=== PATIENT | female | born 2000 | race Caucasian/White ===

== ENCOUNTER 2020-02-28 10:01 | Outpatient (REF) | payer OTHER, SELFPAY | END 2020-02-28 10:02 | disposition home or self-care (01) | LOC: HO.LAB 10:01 | PROVIDERS: Visit Provider Internal Medicine | DX: Z20.828 Contact with and (suspected) exposure to other viral communicable diseases (principal) | CPT/HCPCS: 87635 ==

== ENCOUNTER 2020-11-24 18:48 | Emergency (ER) | payer OTHER, SELFPAY ==
[2020-11-24 19:12] VITALS: BP 132/55; PULSE 92; RESP 18; TEMP 36.6; O2SAT 98; BMI 40.2
--- NOTE | 2020-11-24 20:32 | ED.HA ---
HPI - Headache General Chief Complaint: Headache Stated Complaint: headaches, light headedness Time Seen by Provider: 11/24/20 20:49 Source: patient and family Mode of arrival: ambulatory Limitations: no limitations History of Present Illness HPI Narrative: 20-year-old female with past medical history of obesity presents with chief complain of headache. States that she has a headache feels like pressure cross the front of her head, and that she has had headaches in the past and resolved asthma. She has not take any medications to help alleviate this pain. MD elicited complaint: headache Onset (ago): day(s) Onset description: gradually Location: retro-orbital Severity: moderate Pain scale (0-10): 6 Quality & Timing: aching and pressure Relieving factors: nothing Treatments prior to arrival: none Related Data Allergies Allergy/AdvReac Type Severity Reaction Status Date / Time No Known Allergies Allergy Unverified 01/27/20 16:54 Review of Systems Review of Systems: Constitutional: No Weight loss, No Fever, No Chills, No Night Sweats, No Fatigue, No Malaise ENT/Mouth: No Hearing loss, No Ear Pain, No Nasal Congestion, No Sinus Pain, No Hoarseness, No sore throat, No Rhinorrhea, No Swallowing Difficulty Eyes: No Eye Pain, No Swelling, No Redness, No Foreign Body, No Discharge, No Vision Changes Cardiovascular: No Chest Pain, No SOB, No Dyspnea on Exertion, No Orthopnea, No Edema, No Palpitations Respiratory: No Cough, No Sputum, No Wheezing, No Smoke Exposure, No Dyspnea Gastrointestinal: No Nausea, No Vomiting, No Diarrhea, No Constipation, No abdominal Pain, No Hematochezia, No Melena Genitourinary: no irregular bleeding, No Dysuria, No Urinary Frequency, No Hematuria, No Urinary Incontinence, No Urgency, No Flank Pain, No Urinary Flow Changes, No Hesitancy Musculoskeletal: No joint pain, No Myalgias, No Joint Swelling Skin: No Skin Lesions, No rash Neuro: Positive headache, positive syncope, No Weakness, No Numbness, No Paresthesias, No Loss of Consciousness, No Dizziness Psych: No Anxiety/Panic, No Depression, No SI/HI/AH/VH, No Social Issues Heme/Lymph: No Bruising, No Bleeding,No Lymphadenopathy Endocrine: No Polyuria, No Polydipsia, No Temperature Intolerance Yes all other systems are reviewed and are negative PMFSH Past Medical History Attestation statement: The following information was validated with the patient. Source: old records reviewed Medical History Asthma Concussion Headache Social History Social History Advance Directives: No Advance Directives Information Provided: No Patient : No Physical Exam Vital Signs: Vital Signs: Last Vital Signs Temp 98.7 F 11/24/20 22:00 Pulse 85 11/24/20 22:00 Resp 18 11/24/20 22:00 BP 105/58 L 11/24/20 22:00 Pulse Ox 98 11/24/20 22:00 Body Mass Index 40.2 Appearance: Alert. Oriented X3. No acute distress. Head: Normal external exam. Normocephalic. Atraumatic. No Ashraf signs noted. No raccoon eyes noted Eyes: PERRLA. EOMI. Conjunctiva and sclera normal. Eyelids normal. ENT: TM's Normal. Pharynx normal. Uvula midline. Moist mucous membranes. No trismus noted. No drooling noted. No muffled voice noted. Neck: Normal inspection. Neck supple. No adenopathy. Thyroid Normal. No meningeal signs. No neck mass noted. CVS: Normal heart rate and rhythm. Heart sound normal. No murmurs noted. Pulses equal to all extremities. Respiratory: No respiratory distress. Painless inspiration. Breath sounds normal. No wheezes/rales/rhonchi noted. Chest nontender. No accessory muscle usage noted or decreased air movement noted. Abdomen: Soft and nontender. Bowel sounds normal in all 4 quadrants. No distention noted. No organomegaly noted. No visible injury noted. Back: No CVA tenderness. Full range of motion noted. Skin: Skin warm and dry. Normal skin color. Normal skin turgor. No rashes/lesions/lacerations noted. Extremities: No lower extremity edema. Extremities exhibit normal range of motion. Extremities nontender. Neuro: cranial nerves 2-12 intact, no focal neural deficits, strength 5/5 to all extremities, No motor deficit. No sensory deficit. Course Course Course Narrative: 20-year-old female presents with chief complaint of headache. Once initial triage was completed and this [employer] began my initial assessment, patient stated that she had a syncopal episode on Friday, she was standing for prolonged period of time watching her friend get a tattoo, states that she lost consciousness for several seconds. States that she has not eaten very much over the past several days, stated that she is just not that hungry. She does not report any fevers or chills, denies chest pain or pressure, palpitations, shortness of breath, shortness of breath on exertion, abdominal pain, abdominal distention, dysuria, hematuria, edema, and any other concerning symptoms. Based on her symptom allergy will order CBC, Chem 7, urinalysis, test not indicated as she is not sexually active with men, and COVID test. We will give 1 L of fluid. Patient is neurologically intact, cranial nerves 2-12 intact, no focal neural deficits, no nuchal rigidity. Patient's mother is requesting a full neurological workup with a neurologist, I did tell her at this time that is not indicated and that she is neurovascularly intact. Labs are unremarkable, shows mild elevation in white count, mild anemia, urinalysis is negative. Patient is afebrile. She is advised to follow up with her primary care physician for further workup. MDM - Headache Differential Diagnosis Differential diagnosis: Likely migraine, tension headache and headache Medical Records Attestation: I reviewed the patient's medical records. Lab Data Attestation: I reviewed the patient's lab results. Result diagrams: 11/24/20 21:23 11/24/20 22:45 Labs: Lab Results 11/24/20 11/24/20 11/24/20 Range/Units 21:13 21:23 21:23 WBC 12.1 H (4.8-10.8) X10*3/uL RBC 4.36 (4.20-5.50) X10*6/uL Hgb 11.3 L (12.0-16.0) g/dl Hct 36.1 L (37-47) % MCV 82.8 (80-98) fL MCH 25.9 L (27.0-33.0) pg MCHC 31.3 (31.0-35.0) g/dl RDW 14.4 (11.0-16.0) % Plt Count 322 (160-400) X10*3/uL MPV 12.4 H (9.4-12.3) fL Immature Gran % (Auto) 0.2 (0.0-0.4) % Neut % (Auto) 62.0 (45-73) % Lymph % (Auto) 27.7 (20-40) % [place] % (Auto) 8.3 (2-11) % Eos % (Auto) 1.5 (0-4) % Baso % (Auto) 0.3 (0-2) % Lymph # (Auto) 3.3 (1.2-4.9) X10*3/uL [place] # (Auto) 1.0 (0.1-1.2) X10*3/uL Eos # (Auto) 0.2 (0.0-0.4) X10*3/uL Baso # (Auto) 0.0 (0.0-0.2) X10*3/uL Abs Immat Gran (auto) 0.02 (0.00-0.03) X10*3/uL Absolute Neuts (auto) 7.5 (2.0-8.3) X10*3/uL Absolute Nucleated RBC 0.000 (0.0-0.012) X10*3/uL Nucleated RBC % (auto) 0.0 (0.0-0.2) /100WBC Sodium (135-145) mmol/L Potassium (3.3-5.1) mmol/L Chloride (96-108) mmol/L Carbon Dioxide (22-29) mmol/L Anion Gap (12-20) BUN (9-16) mg/dL Creatinine (0.5-1.4) mg/dL Estim Creat Clear Calc Estimated GFR POC Glucose 117 H (60-115) mg/dL Random Glucose (60-115) mg/dL Calcium (8.4-10.2) mg/dL Troponin I High Sens < 3.5 (<3.5-17.0) ng/L Urine Color Urine Appearance Urine pH (5.0-8.0) Ur Specific [place] (1.005-1.025) Urine Protein (NEG-TRACE) MG/DL Urine Glucose (UA) (NEG) MG/DL Urine Ketones (NEG) MG/DL Urine Blood (NEG) Urine Nitrite (NEG) Ur Leukocyte Esterase (NEG) COVID-19 ([facility]) (Negative) COVID-19 Clin Com 11/24/20 11/24/20 11/24/20 Range/Units 21:23 22:11 22:45 WBC (4.8-10.8) X10*3/uL RBC (4.20-5.50) X10*6/uL Hgb (12.0-16.0) g/dl Hct (37-47) % MCV (80-98) fL MCH (27.0-33.0) pg MCHC (31.0-35.0) g/dl RDW (11.0-16.0) % Plt Count (160-400) X10*3/uL MPV (9.4-12.3) fL Immature Gran % (Auto) (0.0-0.4) % Neut % (Auto) (45-73) % Lymph % (Auto) (20-40) % [place] % (Auto) (2-11) % Eos % (Auto) (0-4) % Baso % (Auto) (0-2) % Lymph # (Auto) (1.2-4.9) X10*3/uL [place] # (Auto) (0.1-1.2) X10*3/uL Eos # (Auto) (0.0-0.4) X10*3/uL Baso # (Auto) (0.0-0.2) X10*3/uL Abs Immat Gran (auto) (0.00-0.03) X10*3/uL Absolute Neuts (auto) (2.0-8.3) X10*3/uL Absolute Nucleated RBC (0.0-0.012) X10*3/uL Nucleated RBC % (auto) (0.0-0.2) /100WBC Sodium 143 (135-145) mmol/L Potassium 3.8 (3.3-5.1) mmol/L Chloride 110 H (96-108) mmol/L Carbon Dioxide 27 (22-29) mmol/L Anion Gap 10 L (12-20) BUN 9 (9-16) mg/dL Creatinine 0.77 (0.5-1.4) mg/dL Estim Creat Clear Calc 143.7 Estimated GFR > 60 POC Glucose (60-115) mg/dL Random Glucose 88 (60-115) mg/dL Calcium 8.9 (8.4-10.2) mg/dL Troponin I High Sens (<3.5-17.0) ng/L Urine Color YELLOW Urine Appearance CLEAR Urine pH 6.0 (5.0-8.0) Ur Specific [place] 1.025 (1.005-1.025) Urine Protein NEG (NEG-TRACE) MG/DL Urine Glucose (UA) NEG (NEG) MG/DL Urine Ketones NEG (NEG) MG/DL Urine Blood NEG (NEG) Urine Nitrite NEG (NEG) Ur Leukocyte Esterase NEG (NEG) COVID-19 ([facility]) Negative (Negative) COVID-19 Clin Com See Note ECG Data Attestation: I personally reviewed and interpreted this ECG as follows: ECG interpretation date: 11/24/20 ECG interpretation time: 22:30 Interpretation: Vent. rate 80 BPM HI interval 152 ms QRS duration 82 ms QT/QTc 384/442 ms P-R-T axes 47 32 31 Normal sinus rhythm Nonspecific ST abnormality Abnormal ECG When compared with ECG of 20-OCT-2018 00:39, T wave amplitude has decreased in Lateral leads Discharge Plan Discharge Clinical Impression: Headache, Dehydration Patient Disposition: Home, Self-Care Instructions: Dehydration (ED), Acute Headache (ED) Additional Instructions: You were evaluated for headache and a syncopal episode that occurred on Friday. Your lab values showed a mildly elevated white count with some mild anemia. Your levels were not significant enough for emergent intervention. We did give you a L of fluid to help with dehydration symptoms. Your glucose was a slightly elevated at 117. Cardiac enzymes were negative. EKG was normal sinus. Urinalysis was negative. COVID test was negative. Please follow-up with primary care physician for further workup. Thank you for choosing this emergency department for evaluation. Please follow-up with primary care physician as needed. Return to the emergency department for any new, concerning, or worsening symptoms. Interventions: ED Discharge Assessment Last Done: 11/24/20 23:52 Discharge Date/Time: 11/24/20 23:55
--- NOTE | 2020-11-24 20:49 | ECG_ITS ---
Test Reason : NEAR SYNCOPE Blood Pressure : / mmHG Vent. Rate : 080 BPM Atrial Rate : 080 BPM P-R Int : 152 ms QRS Dur : 082 ms QT Int : 384 ms P-R-T Axes : 047 032 031 degrees QTc Int : 442 ms Normal sinus rhythm Nonspecific ST abnormality Abnormal ECG When compared with ECG of 20-OCT-2018 00:39, T wave amplitude has decreased in Lateral leads Referred By: Deedee Zepeda Electronically Signed By:Gaurav Sheridan
[2020-11-24] MEDS: 0.9 % Sodium Chloride 1,000 ML 999 ML IVCONT (20:50)
[2020-11-24 21:28] LABS: Glucose, Whole Blood 117 mg/dL (60-115)
[2020-11-24 21:30] LABS: MANUAL DIFF FLAG NO
[2020-11-24 21:31] LABS: Appearance Urine CLEAR; Color Urine YELLOW; Glucose Urine UA NEG (NEG); Leukocyte Esterase Urine NEG (NEG); Nitrite Urine NEG (NEG); Specific Gravity - Urine 1.025 (1.005-1.025); Urine Blood NEG (NEG); Urine Ketones NEG (NEG); Urine Protein NEG (NEG-TRACE)
[2020-11-24 21:36] LABS: Basophils Percent Auto 0.3 % (0-2); Eosinophils Absolute Auto 0.2 X10*3/uL (0.0-0.4); Eosinophils Percent Auto 1.5 % (0-4); Hematocrit 36.1 % (37-47); Hemoglobin 11.3 g/dl (12.0-16.0); Imm Gran Abs Auto 0.02 X10*3/uL (0.00-0.03); Imm Gran Pct Auto 0.2 % (0.0-0.4); Lymphocytes Absolute Auto 3.3 X10*3/uL (1.2-4.9); Lymphocytes Percent Auto 27.7 % (20-40); Mean Corpuscular HGB Conc 31.3 g/dl (31.0-35.0); Mean Corpuscular Hemoglobin 25.9 pg (27.0-33.0); Mean Corpuscular Volume 82.8 fL (80-98); Mean Platelet Volume 12.4 fL (9.4-12.3); Monocytes Percent Auto 8.3 % (2-11); Neutrophils Absolute Auto 7.5 X10*3/uL (2.0-8.3); Platelet Count 322 X10*3/uL (160-400); Red Blood Count 4.36 X10*6/uL (4.20-5.50); Red Cell Distribution Width 14.4 % (11.0-16.0); White Blood Count 12.1 X10*3/uL (4.8-10.8)
[2020-11-24 21:56] LABS: Troponin-I High Sensitivity < 3.5 ng/L (<3.5-17.0)
[2020-11-24 22:00] VITALS: BP 105/58; PULSE 85; RESP 18; TEMP 37.1; O2SAT 98
[2020-11-24 22:32] LABS: COVID-19 Test Negative (Negative)
--- NOTE | 2020-11-24 22:45 | PC.NURSE ---
denies headache at this time. no neuro deficits. skin pwd.
[2020-11-24 23:11] LABS: Anion Gap 10 (12-20); Blood Urea Nitrogen 9 mg/dL (9-16); Calcium 8.9 mg/dL (8.4-10.2); Carbon Dioxide 27 mmol/L (22-29); Chloride 110 mmol/L (96-108); Creatinine Clr Calc Pharmacy 143.7; Estimated Glomerular Filt Rate > 60; Glucose Random 88 mg/dL (60-115); Potassium 3.8 mmol/L (3.3-5.1); Sodium 143 mmol/L (135-145)
== END 2020-11-24 23:55 | disposition home or self-care (01) ==
PROVIDERS: Nurse Practitioner Family; Emergency Provider Internal Medicine; PCP Psychiatry & Neurology Child & Adolescent Psychiatry
DX: R51.9 Headache, unspecified (principal); E86.0 Dehydration; D64.9 Anemia, unspecified; D72.829 Elevated white blood cell count, unspecified; Z20.822 Contact with and (suspected) exposure to COVID-19
CPT/HCPCS: 36415; 80048; 81003; 82947; 84484; 85025; 87635; 93005; 96360; 99284